=== PATIENT | female | born 1990 | race Caucasian/White ===

== ENCOUNTER 2020-04-15 00:27 | Outpatient (CLI) | payer BC, SELFPAY ==
[2020-04-15 17:43] LABS: SARS-CoV-2 RNA PCR Negative
== END 2020-04-15 00:28 | disposition home or self-care (01) ==
LOC: ANHCOVIDDT 00:27
PROVIDERS: PCP Family Medicine; Visit Provider Internal Medicine Gastroenterology
DX: Z01.818 Encounter for other preprocedural examination (principal); Z11.59 Encounter for screening for other viral diseases
CPT/HCPCS: 87635; C9803; U0003

== ENCOUNTER 2020-04-17 01:05 | Day surgery (SDC) | payer BC, SELFPAY ==
[2020-04-10 13:27] VITALS: BMI 48.2
[2020-04-17 06:40] VITALS: BMI 48.8
--- NOTE | 2020-04-17 06:45 | WPDANESEPPF ---
Anes - Initial Pre Proc Eval Procedure: Operation Date: 04/17/20 07:30 Proposed Procedures p Esophagogastroduodenoscopy - Tejas Dalton MD Date/Time: 04/17/20 06:45 Surgeon: Tejas Dalton MD Pre Op Diagnosis: GERD Patient Data Age: 29 Gender: F Height: 1.73 m Weight: 145.7 kg Allergies Allergy/AdvReac Type Severity Reaction Status Date / Time acetaminophen Allergy Intermediate facial Verified 04/17/20 06:39 [From Excedrin Migraine] swelling aspirin Allergy Intermediate facial Verified 04/17/20 06:39 [From Excedrin Migraine] swelling Sulfa (Sulfonamide Allergy Mild rash Verified 04/17/20 06:39 Antibiotics) sulfamethoxazole Allergy Mild rash Verified 04/17/20 06:39 sulfamethizole Allergy Unknown rash Verified 04/17/20 06:39 trimethoprim Allergy Unknown rash Verified 04/17/20 06:39 Home Medications Medication Instructions Recorded Confirmed Type ferrous sulfate 325 mg (65 mg See Rx Instructions .ROUTE 01/15/20 04/10/20 History iron) tablet .COMPLEX PRN sumatriptan succinate 25 mg tablet See Rx Instructions PO .COMPLEX #9 01/15/20 04/10/20 Rx tablet drospirenone (contraceptive) 4 mg PO DAILY 04/10/20 04/10/20 History [Slynd] Patient hx anesthesia problems: none Family hx anesthesia problems: none PMFSH Past Medical History Medical History (Updated 04/09/20 @ 09:45 by Tejas Dalton MD) Chronic headaches GERD (gastroesophageal reflux disease) Migraines Morbid obesity Surgical History Surgical History (Updated 01/15/20 @ 10:37 by Boubacar Craven CMA) H/O foot surgery (~2010) H/O knee surgery (~2013) History of throat surgery (~2009) Family History Family History (Updated 01/15/20 @ 17:07 by Boubacar Craven CMA) Mother Family history of migraine headaches Father Acute myocardial infarction Blindness Grandparent Dementia Social History Social History (Updated 01/15/20 @ 17:00 by Boubacar Cravne CMA) Social History: pts drinks 1 cup of caffeine per day Smoking status: Never smoker Second hand tobacco smoke exposure: No Alcohol intake: current Drinks per week: 2 Substance use: never Substance use type: does not use Gender identity (if verbalized by the patient): Female Anes - Eval Final PreProcedure Day of Procedure 04/17/20 06:45 Patient weight: morbidly obese Heart: regular rate and rhythm Lungs: clear to auscultation and normal air movement Airway: Mallampati scale class II Neurological: alert and oriented Last oral intake: >/= 8 hours ASA classification: III Emergent: no Anesthetic plan: proceed Anesthesia type and monitoring: general GIVS Informed Consent: The patient's anesthetic plan and its attendant risks and benefits were discussed with the patient/family/POA. Questions were solicited and answers provided to the satisfaction of the patient/family/POA.
[2020-04-17] MEDS: LACTATED RINGERS 1,000 ML 150 ML IV CONT (06:51)
--- NOTE | 2020-04-17 07:32 | WPDHPUPDATE1 ---
History and Physical Update Update Date/Time: 04/17/20 07:32 History and Physical has been reviewed, including an updated exam of the patient. There are NO changes in the patient's condition. Risks, benefits, and alternatives have been discussed and questions answered. Patient agrees to proceed with procedure.
[2020-04-17 07:47] VITALS: BP 122/83; PULSE 86; RESP 20; O2SAT 98
[2020-04-17 07:57] VITALS: BP 124/82; PULSE 78; RESP 19; O2SAT 100
[2020-04-17 08:07] VITALS: BP 134/81; PULSE 74; RESP 20; O2SAT 100
== END 2020-04-17 08:12 | disposition home or self-care (01) ==
PROVIDERS: PCP Family Medicine; Visit Provider Internal Medicine Gastroenterology
PROC: 0DJ08ZZ Inspection of Upper Intestinal Tract, Via Natural or Artificial Opening Endoscopic (ICD-10-PCS; CPT 43235; principal; 2020-04-17 07:30)
DX: K21.9 Gastro-esophageal reflux disease without esophagitis (principal); K44.9 Diaphragmatic hernia without obstruction or gangrene; K29.50 Unspecified chronic gastritis without bleeding; E66.01 Morbid (severe) obesity due to excess calories; Z68.42 Body mass index [BMI] 45.0-49.9, adult
CPT/HCPCS: 43239; 87081; 88305; J2001; J2704; J7120

== ENCOUNTER 2020-04-22 11:41 | Outpatient (CLI) | payer BC, SELFPAY ==
[2020-04-22 13:08] LABS: Parathyroid Intact 47.1 pg/mL (7.5-53.5)
[2020-04-22 13:34] LABS: Iron 59 ug/dL (37-170)
[2020-04-22 17:20] LABS: Folic Acid 14.3 ng/mL (2.76->20)
[2020-04-24 21:56] LABS: Zinc 61 mcg/dL (60-130)
[2020-04-27 11:46] LABS: Vitamin B1 10 nmol/L (8-30)
== END 2020-04-22 11:42 | disposition home or self-care (01) ==
PROVIDERS: PCP Family Medicine
DX: E66.01 Morbid (severe) obesity due to excess calories (principal); Z68.42 Body mass index [BMI] 45.0-49.9, adult
CPT/HCPCS: 36415; 82607; 82728; 82746; 83540; 83970; 84425; 84630

== ENCOUNTER 2022-06-17 12:57 | Outpatient (CLI) | payer BC, SELFPAY ==
[2022-06-17 20:12] LABS: Alanine Aminotransferase 31 U/L (6-35); Albumin Level 4.5 g/dL (3.5-5.1); Alkaline Phosphatase 64 U/L (38-126); Anion Gap 12 mmol/L (8-16); Aspartate Amino Transferase 32 U/L (14-36); Bilirubin,Total 0.4 mg/dL (0.2-1.3); Blood Urea Nitrogen 11 mg/dL (7-17); Calcium 9.7 mg/dL (8.4-10.2); Carbon Dioxide 24 mmol/L (22-30); Chloride 100 mmol/L (98-107); Cholesterol 192 mg/dL (0-200); Estimated Glomerular Filt Rate > 60; Glucose 101 mg/dL (65-110); HDL Direct 51 mg/dL; Potassium 3.5 mmol/L (3.4-5.0); Sodium 136 mmol/L (137-145); Triglycerides 107 mg/dL (<150)
[2022-06-17 20:23] LABS: LDL Cholesterol Direct 102 mg/dL
[2022-06-17 20:28] LABS: Vitamin D 25 Hydroxy 47.9 ng/mL
[2022-06-17 21:04] LABS: Basophils Percent Auto 0.3 % (0.2-1.2); Eosinophils Absolute Auto 0.1 K/mm3 (0-0.3); Hematocrit 41.4 % (37.0-47.0); Hemoglobin 13.5 g/dL (12.0-15.0); Immature Granulocyte Absolute 0.01 K/mm3 (0.00-0.031); Immature Granulocyte Percent A 0.1 % (0-0.5); Lymphocytes Absolute Auto 1.85 K/mm3 (0.9-3.2); Lymphocytes Percent Auto 26.9 % (18.3-44.2); Mean Corpuscular HGB Conc 32.6 g/dl (32-36); Mean Corpuscular Hemoglobin 26.7 pg (26-34); Mean Platelet Volume 9.3 fl (7.4-10.4); Monocytes Absolute Auto 0.4 K/mm3 (0.1-0.6); Monocytes Percent Auto 5.7 % (2.6-8.5); Neutrophils Absolute Auto 4.5 K/mm3 (1.3-6.7); Platelet Count Result 306 k/mm3 (150-375); Red Blood Count 5.05 M/mm3 (4.2-5.4); Red Cell Distribution Width 12.6 % (11.5-14.5); White Blood Count 6.9 K/mm3 (4.5-10.0)
== END 2022-06-17 12:58 | disposition home or self-care (01) ==
PROVIDERS: PCP Family Medicine; Visit Provider Nurse Practitioner
DX: Z13.6 Encounter for screening for cardiovascular disorders (principal); Z13.220 Encounter for screening for lipoid disorders; E55.9 Vitamin D deficiency, unspecified; E53.8 Deficiency of other specified B group vitamins; R53.83 Other fatigue
CPT/HCPCS: 36415; 80053; 80061; 82306; 82607; 85025

== ENCOUNTER 2022-06-17 13:06 | Outpatient (CLI) | payer BC, SELFPAY ==
[2022-06-20 13:54] LABS: FSH 10.5 mIU/mL (***); LH 26.4 mIU/mL (***); Progesterone 0.3 ng/mL (***)
[2022-06-20 14:15] LABS: DHEA-Sulfate 152 mcg/dL (18-391)
[2022-06-22 19:22] LABS: Testosterone Free 4.4 pg/mL (0.1-6.4); Testosterone Total 48 ng/dL (2-45)
[2022-06-25 02:57] LABS: Estriol <0.10 ng/mL
== END 2022-06-17 13:07 | disposition home or self-care (01) ==
LOC: ANHGOSHLAB 13:08
PROVIDERS: PCP Family Medicine; Visit Provider Nurse Practitioner Obstetrics & Gynecology
DX: E28.2 Polycystic ovarian syndrome (principal)
CPT/HCPCS: 36415; 82627; 82677; 83001; 83002; 83520; 84144; 84402; 84403

== ENCOUNTER 2022-08-03 02:06 | Day surgery (SDC) | payer BC, SELFPAY ==
[2022-08-01 14:21] VITALS: BMI 40.3
[2022-08-03 07:20] VITALS: BP 138/89; PULSE 78; RESP 20; TEMP 36.5; O2SAT 98
[2022-08-03] MEDS: LACTATED RINGERS 1,000 ML 150 ML IV CONT (07:31)
--- NOTE | 2022-08-03 08:08 | WPDANESEPPF ---
Anes - Initial Pre Proc Eval Procedure: Operation Date: 08/03/22 08:30 Proposed Procedures p Esophagogastroduodenoscopy - Tejas Dalton MD Date/Time: 08/03/22 08:08 Surgeon: Tejas Dalton MD Pre Op Diagnosis: GERD Patient Data Age: 31 Gender: F Height: 1.73 m Weight: 122.2 kg Last Vital Signs Temp 97.7 F 08/03/22 07:20 Pulse 78 08/03/22 07:20 Resp 20 08/03/22 07:20 BP 138/89 08/03/22 07:20 Pulse Ox 98 08/03/22 07:20 O2 Del Method Room Air 08/03/22 07:20 Allergies Allergy/AdvReac Type Severity Reaction Status Date / Time acetaminophen Allergy Intermediate facial Verified 08/03/22 07:19 [From Excedrin Migraine] swelling aspirin Allergy Intermediate facial Verified 08/03/22 07:19 [From Excedrin Migraine] swelling Sulfa (Sulfonamide Allergy Mild rash Verified 08/03/22 07:19 Antibiotics) sulfamethoxazole Allergy Mild rash Verified 08/03/22 07:19 sulfamethizole Allergy Unknown rash Verified 08/03/22 07:19 trimethoprim Allergy Unknown rash Verified 08/03/22 07:19 Home Medications Medication Instructions Recorded Confirmed Type sumatriptan succinate 25 mg tablet See Rx Instructions PO .COMPLEX #9 01/15/20 08/01/22 Rx tabs cholecalciferol (vitamin D3) 25 25 mcg PO DAILY 06/10/20 08/01/22 History mcg (1,000 unit) capsule multivitamin 1 tablet PO DAILY 06/10/20 08/01/22 History njjdumkyoa-daldjivkjrzyq-rdlwqojv 1 cap PO Q4-6H PRN pain #30 caps 06/06/22 08/01/22 Rx 50 mg-300 mg-40 mg capsule (Fioricet) hydroxyzine HCl 10 mg tablet 10 mg PO .at bedtime #30 tabs 06/06/22 08/01/22 Rx mupirocin 2 % topical ointment 1 applic topical BID #22 grams 06/06/22 08/01/22 Rx cyanocobalamin (vitamin B-12) 1,000 mcg PO DAILY #90 tabs 06/21/22 08/01/22 Rx 1,000 mcg tablet (Vitamin B-12) Patient hx anesthesia problems: none Family hx anesthesia problems: none Results Review: All pre-operative results and documents have been reviewed as part of the pre-operative evaluation. [facility] Past Medical History Medical History (Updated 06/30/22 @ 14:58 by Tejas Dalton MD) Chronic headaches GERD (gastroesophageal reflux disease) Migraines Morbid obesity Vomiting Surgical History Surgical History H/O foot surgery (~2010) H/O knee surgery (~2013) History of throat surgery (~2009) Hx of laparoscopic gastric banding Family History Family History Mother Family history of migraine headaches Father Acute myocardial infarction Blindness Grandparent Dementia Social History Social History Social History: pts drinks 1 cup of caffeine per day Smoking status: Never smoker Second hand tobacco smoke exposure: No Alcohol intake: current Drinks per week: 2 Substance use: never Substance use type: does not use Living arrangements: alone Gender identity (if verbalized by the patient): Female Spiritual care concerns: No Agree to blood products: Yes Anes - Eval Final PreProcedure Day of Procedure 08/03/22 08:08 Patient weight: morbidly obese Heart: regular rate and rhythm Lungs: clear to auscultation Airway: Mallampati scale class II Neurological: alert and oriented Last oral intake: >/= 8 hours ASA classification: III Emergent: no Anesthetic plan: proceed Anesthesia type and monitoring: general GIVS and standard monitoring Results Review: All pre-operative results and documents have been reviewed as part of the pre-operative evaluation. Informed Consent: The patient's anesthetic plan and its attendant risks and benefits were discussed with the patient/family/POA. Questions were solicited and answers provided to the satisfaction of the patient/family/POA.
--- NOTE | 2022-08-03 08:21 | PM.HPGS ---
History of Present Illness History of Present Illness Consent: Risks, benefits, and alternatives have been discussed and questions answered. Patient agrees to proceed with procedure. Chief complaint: GERD Narrative: Eunice Pruitt is a 31 year old female here for another EGD, I?did her EGD just previous her bariatric surgery, only small HH without other findings (she was not having symptoms) then underwent laparoscopic sleeve gastrectomy completed on 05/26/[address] Saucedo at [facility] in [place].? Since her surgery she is experiencing severe GERD but right now is controlled with ppi twice daily. Review of Systems Constitutional: Constitutional: Denies headache(s) and Denies weakness Eyes: Eyes: Denies blurry vision ENT: Reports Normal hearing present, Denies headache(s) and Denies neck pain Cardiovascular: Cardiovascular: Denies chest pain and Denies dyspnea Respiratory: Respiratory: Denies dyspnea Gastrointestinal: Gastrointestinal: Reports no additional gastrointestinal complaints Genitourinary: Genitourinary: Denies dysuria Musculoskeletal: Musculoskeletal: Denies neck pain Integumentary/Breasts: Skin/Breast: Denies dry skin Neurologic: Reports Normal hearing present, Denies headache(s) and Denies weakness Psychiatric: Psychiatric: Denies anxiety Endocrine: Endocrine: Denies change in body appearance Hematologic/Lymphatic: Hematologic/Lymphatic: Denies easy bleeding Allergic/Immunologic: Allergic/Immunologic: Denies urticaria PMFSH Past Medical History Medical History (Updated 06/30/22 @ 14:58 by Tejas Dalton MD) Chronic headaches GERD (gastroesophageal reflux disease) Migraines Morbid obesity Vomiting Surgical History Surgical History H/O foot surgery (~2010) H/O knee surgery (~2013) History of throat surgery (~2009) Hx of laparoscopic gastric banding Family History Family History Mother Family history of migraine headaches Father Acute myocardial infarction Blindness Grandparent Dementia Social History Social History Social History: pts drinks 1 cup of caffeine per day Smoking status: Never smoker Second hand tobacco smoke exposure: No Alcohol intake: current Drinks per week: 2 Substance use: never Substance use type: does not use Living arrangements: alone Gender identity (if verbalized by the patient): Female Spiritual care concerns: No Agree to blood products: Yes Meds Home Medications and Allergies Home Medications Medication Instructions Recorded Confirmed Type sumatriptan succinate 25 mg tablet See Rx Instructions PO .COMPLEX #9 01/15/20 08/01/22 Rx tabs cholecalciferol (vitamin D3) 25 25 mcg PO DAILY 06/10/20 08/01/22 History mcg (1,000 unit) capsule multivitamin 1 tablet PO DAILY 06/10/20 08/01/22 History unfvscdjds-jyacengwlneke-ezjnkweu 1 cap PO Q4-6H PRN pain #30 caps 06/06/22 08/01/22 Rx 50 mg-300 mg-40 mg capsule (Fioricet) hydroxyzine HCl 10 mg tablet 10 mg PO .at bedtime #30 tabs 06/06/22 08/01/22 Rx mupirocin 2 % topical ointment 1 applic topical BID #22 grams 06/06/22 08/01/22 Rx cyanocobalamin (vitamin B-12) 1,000 mcg PO DAILY #90 tabs 06/21/22 08/01/22 Rx 1,000 mcg tablet (Vitamin B-12) Allergies Allergy/AdvReac Type Severity Reaction Status Date / Time acetaminophen Allergy Intermediate facial Verified 08/03/22 07:19 [From Excedrin Migraine] swelling aspirin Allergy Intermediate facial Verified 08/03/22 07:19 [From Excedrin Migraine] swelling Sulfa (Sulfonamide Allergy Mild rash Verified 08/03/22 07:19 Antibiotics) sulfamethoxazole Allergy Mild rash Verified 08/03/22 07:19 sulfamethizole Allergy Unknown rash Verified 08/03/22 07:19 trimethoprim Allergy Unknown rash Verified
[2022-08-03 08:40] VITALS: BP 128/58; PULSE 72; RESP 26; O2SAT 100
[2022-08-03 08:50] VITALS: BP 142/98; PULSE 64; RESP 23; O2SAT 100
[2022-08-03 09:00] VITALS: BP 134/99; PULSE 60; RESP 20; O2SAT 100
== END 2022-08-03 09:10 | disposition home or self-care (01) ==
PROVIDERS: PCP Family Medicine; Visit Provider Internal Medicine Gastroenterology
PROC: 0DJ08ZZ Inspection of Upper Intestinal Tract, Via Natural or Artificial Opening Endoscopic (ICD-10-PCS; CPT 43235; principal; 2022-08-03 08:30)
DX: K21.9 Gastro-esophageal reflux disease without esophagitis (principal); K44.9 Diaphragmatic hernia without obstruction or gangrene; Z98.84 Bariatric surgery status; E66.01 Morbid (severe) obesity due to excess calories; Z68.41 Body mass index [BMI] 40.0-44.9, adult
CPT/HCPCS: 43239; 88305; J2704; J7120

== ENCOUNTER 2022-10-12 06:59 | Outpatient (CLI) | payer BC, SELFPAY ==
--- NOTE | 2022-10-29 19:29 | WPDSLEEPSTUD ---
Sleep Study Date of Study: 10/12/2022 Ordering Provider: Marlene Mann NP Interpreting Physician: Natalia Davison MD Height: 1.73 m Weight: 120.202 kg Body Mass Index: 40.3 Neck Circumference (inches): 15 [place]: 4 Reason for Sleep Study Difficulty falling asleep and staying asleep Sleep History Eunice Pruitt is a 31-year-old female with difficulty falling asleep and staying asleep. She averages 4-6 hours of sleep at night and this is been going on for many years. She has tried ZzzQuil, Benadryl, melatonin, meditation and other sleeps prescriptions to help fall asleep. 2 members of her family have sleep apnea. She does not awaken from sleep feeling short of breath. She constantly awakens at night with heartburn, belching or coughing. She rarely snores but never loudly enough that others complain about it. She frequently has trouble sleeping with a cold. She does not wake up gasping for breath at night. She does not have breathing problems at night observed by others. She occasionally sweats excessively at night. She rarely notices her heart pounding or beating irregularly at night. She occasionally falls asleep during the day, rarely falls asleep involuntarily, never falls asleep while driving. She does not have loss of muscle tone with strong emotion. She frequently has daytime difficulties due to excessive sleepiness. She occasionally feels paralyzed on waking or falling asleep. She frequently has vivid dreamlike scenes upon awakening or falling asleep. She does not feel afraid to go to sleep. She occasionally has nightmares. She constantly remembers her dreams. She occasionally has racing thoughts. She rarely feels sad depressed or anxious. She rarely has muscular tension. She occasionally notices parts of her body jerking. She occasionally kicks at night. She rarely has crawling and aching feelings in her legs, rarely has any kind of leg pain at night. She does not have morning jaw pain. She does not grind her teeth during sleep. She is not bothered by pain during the day and rarely is awakened by pain at night. She frequently wakes up feeling stiff in the morning occasionally with sore achy muscles, frequently wakes up with pain in the neck and spine. Her main complaint is insomnia. She takes antacids regularly. She has headaches. She hits the snooze button, and returns to sleep for an hour. This is a planned return to sleep. She does not generally take naps in the afternoon or evening. She may feel refreshed after a short nap lasting 10 or 15 minutes. She is drowsy in the morning for 1 hour or longer. She feels better in the afternoon compared to other times of day. She always has heartburn at night. She frequently has morning headaches. Only occasionally does she awaken feeling refreshed. She reports a 30 lb weight gain in the last year. Habits: Never smoked tobacco. Caffeine 3 servings a day. Alcohol: 3 drinks once per week. No recreational drugs. [facility] Past Medical History Medical History (Updated 10/29/22 @ 20:03 by Natalia Davison MD) Chronic headaches GERD (gastroesophageal reflux disease) Migraines Morbid obesity Vomiting Surgical History Surgical History H/O foot surgery (~2010) H/O knee surgery (~2013) History of throat surgery (~2009) Hx of laparoscopic gastric banding Family History Family History Mother Family history of migraine headaches Father Acute myocardial infarction Blindness Grandparent Dementia Social History Social History Social History: pts drinks 1 cup of caffeine per day Smoking status: Never smoker Second hand tobacco smoke exposure: No Alcohol intake: current Drinks per week: 2 Substance use: never Substance use type: does not use Gender identity (if verbalized
[2022-10-29 20:08] VITALS: BMI 40.3
== END 2022-10-13 12:29 | disposition home or self-care (01) ==
PROVIDERS: PCP Family Medicine; Visit Provider Nurse Practitioner
DX: G47.10 Hypersomnia, unspecified (principal); G47.00 Insomnia, unspecified
CPT/HCPCS: 95800

== ENCOUNTER 2022-10-26 10:24 | Outpatient (CLI) | payer BC, SELFPAY ==
[2022-10-26 23:43] LABS: Kit Draw Collected
== END 2022-10-26 10:25 | disposition home or self-care (01) ==
LOC: ANHGOSHLAB 10:27
PROVIDERS: PCP Family Medicine
DX: E28.8 Other ovarian dysfunction (principal)
CPT/HCPCS: 36415

== ENCOUNTER 2024-09-09 10:28 | Outpatient (CLI) | payer BC, SELFPAY ==
[2024-09-09 14:18] LABS: Hematocrit 41.1 % (37.0-47.0); Mean Corpuscular HGB Conc 31.6 g/dl (32-36); Mean Corpuscular Hemoglobin 25.9 pg (26-34); Platelet Count Result 281 k/mm3 (150-375); Red Blood Count 5.01 M/mm3 (4.2-5.4); Red Cell Distribution Width 14.1 % (11.5-14.5); White Blood Count 5.7 K/mm3 (4.5-10.0)
== END 2024-09-09 10:29 | disposition home or self-care (01) ==
LOC: ANHGOSHLAB 10:29
PROVIDERS: PCP Family Medicine; Visit Provider Nurse Practitioner Family
DX: D50.9 Iron deficiency anemia, unspecified (principal)
CPT/HCPCS: 36415; 82728; 85027

== ENCOUNTER 2024-10-11 14:45 | Outpatient (CLI) | payer BC, SELFPAY ==
[2024-10-11 15:24] LABS: Strep Group A RT-PCR NOT DETECTED (Negative)
[2024-10-11 15:35] LABS: Influenza A QL RT-PCR Negative (Negative); Influenza B QL RT-PCR Negative (Negative); RSV RNA, RT-PCR Negative (Negative); SARS-CoV-2 RNA PCR Negative (Negative)
== END 2024-10-11 14:46 | disposition home or self-care (01) ==
PROVIDERS: PCP Family Medicine; Visit Provider Family Medicine
DX: J02.9 Acute pharyngitis, unspecified (principal); Z20.822 Contact with and (suspected) exposure to COVID-19
CPT/HCPCS: 87637; 87651